=== PATIENT | female | born 1995 | race African-American/Black ===

== ENCOUNTER 2023-02-20 12:55 | Emergency (ER) | payer OTHER ==
[2023-02-20 13:13] VITALS: BP 116/52; PULSE 61; RESP 20; TEMP 98.1; BMI 23.4
[2023-02-20] MEDS ORDERED: ACETAMINOPHEN 325 MG TABLET (FP) PO ONE (14:01)
[2023-02-20] MEDS ORDERED: KETOROLAC TROMETHAMINE 30 MG/1 ML VIAL IM ONE (14:01)
[2023-02-20] MEDS ORDERED: ACETAMINOPHEN 325 MG TABLET (FP) ONE (14:04)
[2023-02-20] MEDS ORDERED: KETOROLAC TROMETHAMINE 30 MG/1 ML VIAL ONE (14:04)
== END 2023-02-20 15:09 | disposition home or self-care (01) ==
LOC: JER 12:55
DX: R51.9 Headache, unspecified (principal)
CPT/HCPCS: 99284-25